=== PATIENT | female | born 1975 | race African-American/Black ===

== ENCOUNTER 2019-12-02 08:34 | Inpatient (IN) | payer MEDICAID, OTHER ==
[~2019-12-02] VITALS: Ht 160 cm; Wt 89.9 kg
[2019-12-02] MEDS ORDERED: ALBUTEROL SULF 2.5 MG/0.5ML(0.5%) NEB SOLN HHN STA (08:48)
[2019-12-02] MEDS ORDERED: IPRATROPIUM BROM 0.5 MG/2.5ML INH SOL NEB ONE (09:00)
[2019-12-02] MEDS ORDERED: ALBUTEROL SULF 2.5 MG/0.5ML(0.5%) NEB SOLN ONE ×2 (09:07→16:24)
[2019-12-02] MEDS ORDERED: methylPREDNISolone SOD SUCC 125 MG/2 ML VL ONE (09:08)
[2019-12-02] MEDS ORDERED: cefTRIAXone 1GM/50ML D5W 50 ML IV ONE ×2 (09:10→09:45)
[2019-12-02] MEDS ORDERED: methylPREDNISolone SOD SUCC 125 MG/2 ML VL IV ONE ×2 (09:15→16:30)
[2019-12-02] MEDS ORDERED: SODIUM CHLORIDE 0.9% 1,000 ML IV ONE ×2 (09:22→16:45)
[2019-12-02 09:59] LABS: Eosinophils # (auto) 0.4 10 ^3/uL (0-0.8); Hematocrit 41.6 % (36.0-46.0); Mean Corpuscular Hemoglobin 24.6 pg (28.0-32.0); Neutrophils # (auto) 4.3 10 ^3/uL (1.6-8.6); Neutrophils % (auto) 50.4 % (37.0-80.0); White Blood Cell 8.5 10^3/uL (4.4-10.8)
[2019-12-02 10:00] LABS: Basophils # (auto) 0.1 10 ^3/uL (0-0.2); Basophils % (auto) 0.6 % (0.0-2.0); Eosinophils % (auto) 4.8 % (0.0-7.0); Hemoglobin 12.8 g/dL (12.2-16.2); Lymphocytes % (auto) 34.8 % (10.0-50.0); Mean Corpuscular Hgb Conc. 30.8 g/dL (32.0-36.0); Monocytes # (auto) 0.8 10 ^3/uL (0-1.3); Monocytes % (auto) 9.4 % (0.0-12.0); Nucleated Red Blood Cells % 0.2 %; Platelet Count (auto) 161 10^3/uL (140-450); Red Cell Distribution Width 18.9 % (11.8-14.3)
[2019-12-02 10:04] LABS: Urine Bacteria FEW /hpf (None Seen); Urine Blood Negative /uL (Negative); Urine Specific Gravity 1.012 (1.001-1.035); Urine WBC <1 /hpf (0 - 5)
[2019-12-02 10:24] LABS: Albumin 3.1 g/dL (3.4-5.0); Anion Gap 5 (5-15); BUN/Creatinine Ratio 14.7; Blood Urea Nitrogen 10 mg/dL (7-18); Calcium 8.4 mg/dL (8.5-10.1); Carbon Dioxide 24 mmol/L (21-32); Chloride 111 mmol/L (98-107); GFR African American 121 mL/min; GFR Non-African American 100 mL/min; Glucose 120 mg/dL (74-106); Potassium 3.8 mmol/L (3.5-5.1); Sodium 140 mmol/L (136-145)
[2019-12-02 10:29] LABS: Alanine Aminotransferase 13 U/L (13-56); Alkaline Phosphatase 96 U/L (45-117); Aspartate Aminotransferase 23 U/L (15-37); Bilirubin, Total 0.3 mg/dL (0.2-1.0); Total Protein 7.2 g/dL (6.4-8.2)
[2019-12-02] MEDS ORDERED: MAGNESIUM SULFATE 1GM/100ML 100 ML IV ONE ×2 (10:30→16:45)
[2019-12-02] MEDS ORDERED: MORPHINE SULF INJ 2 MG/ML SYRINGE 1ML IV PRN ×2 (13:00)
[2019-12-02] MEDS ORDERED: ACETAMINOPHEN 500 MG TAB PO PRN (13:00)
[2019-12-02] MEDS ORDERED: NITROGLYCERIN 0.4 MG SL TAB SL PRN (13:00)
[2019-12-02] MEDS ORDERED: ONDANSETRON HCL 4 MG/2 ML VIAL IV PRN (13:00)
[2019-12-02] MEDS: SODIUM CHLORIDE 0.9% 1,000 ML IV SCH ×2 (13:08→20:55)
[2019-12-02] MEDS: IPRATROPIUM BROM 0.5 MG/2.5ML INH SOL NEB SCH ×3 (14:00→21:07)
[2019-12-02] MEDS: ALBUTEROL SULF 2.5 MG/0.5ML(0.5%) NEB SOLN NEB SCH ×2 (14:00→18:04)
[2019-12-02 14:35] VITALS: BP 136/78
[2019-12-02] MEDS ORDERED: ALBUTEROL SULF 2.5 MG/0.5ML(0.5%) NEB SOLN NEB ONE (15:30)
[2019-12-02] MEDS ORDERED: ALBUTEROL SULF 2.5 MG/0.5ML(0.5%) NEB SOLN NEB SCH (19:00)
[2019-12-02] MEDS ORDERED: IPRATROPIUM BROM 0.5 MG/2.5ML INH SOL NEB SCH (20:00)
[2019-12-02] MEDS: LEVALBUTEROL HCL 1.25 MG/3 ML NEB NEB SCH ×4 (20:23→23:23)
[2019-12-02] MEDS: methylPREDNISolone SOD SUCC 125 MG/2 ML VL IV SCH (21:41)
[2019-12-02] MEDS ORDERED: ACETYLCYSTEINE 20%(200MG/ML) SOL 4ML NEB SCH (22:00)
[2019-12-02] MEDS ORDERED: BUDESONIDE (INHALATION) 0.5 MG/2 ML NEB NEB SCH (22:00)
[2019-12-02] MEDS ORDERED: methylPREDNISolone SOD SUCC 125 MG/2 ML VL IV SCH (22:00)
[2019-12-02] MEDS ORDERED: PROMETHAZINE HCL 25 MG/ML 1ML IV ONE (22:45)
[2019-12-03] VITALS (29 sets, daily range): BP systolic 86–153; BP diastolic 43–88
[2019-12-03] MEDS: LEVALBUTEROL HCL 1.25 MG/3 ML NEB NEB SCH ×5 (01:16→04:08)
[2019-12-03] MEDS: IPRATROPIUM BROM 0.5 MG/2.5ML INH SOL NEB SCH ×4 (01:16→21:55)
[2019-12-03 04:23] LABS: Basophils # (auto) 0 10 ^3/uL (0-0.2); Eosinophils # (auto) 0 10 ^3/uL (0-0.8); Hemoglobin 11.1 g/dL (12.2-16.2); Lymphocytes # (auto) 0.6 10 ^3/uL (0.4-5.4); Lymphocytes % (auto) 9.5 % (10.0-50.0); Mean Corpuscular Hemoglobin 24.9 pg (28.0-32.0); Mean Corpuscular Hgb Conc. 31.7 g/dL (32.0-36.0); Mean Corpuscular Volume 78.8 fL (80.0-100.0); Monocytes # (auto) 0.1 10 ^3/uL (0-1.3); Monocytes % (auto) 1.5 % (0.0-12.0); Neutrophils # (auto) 5.4 10 ^3/uL (1.6-8.6); Platelet Count (auto) 141 10^3/uL (140-450); Red Blood Cells 4.45 10^6/uL (4.0-5.20); White Blood Cell 6.1 10^3/uL (4.4-10.8)
[2019-12-03 04:37] LABS: Potassium 3.1 mmol/L (3.5-5.1)
[2019-12-03] MEDS ORDERED: ALBUTEROL SULF HFA 90MCG INH 200DOSE IN SCH (06:00)
[2019-12-03] MEDS: SODIUM CHLORIDE 0.9% 1,000 ML IV SCH (06:05)
[2019-12-03] MEDS: methylPREDNISolone SOD SUCC 125 MG/2 ML VL IV SCH (08:06)
[2019-12-03] MEDS: cefTRIAXone 1GM/50ML D5W 50 ML IV SCH (08:06)
[2019-12-03] MEDS ORDERED: PANTOPRAZOLE 40 MG TAB PO SCH (10:00)
[2019-12-03] MEDS ORDERED: AZITHROMYCIN 500MG/ 250ML 250 ML IV SCH (10:00)
[2019-12-03] MEDS ORDERED: BUDESONIDE (INHALATION) 0.5 MG/2 ML NEB NEB ONE (12:30)
[2019-12-03] MEDS ORDERED: POTASSIUM CHL 20 Meq TABLET PO ONE (12:30)
[2019-12-03] MEDS ORDERED: IPRATROPIUM BROM 0.5 MG/2.5ML INH SOL NEB SCH ×2 (14:00)
[2019-12-03] MEDS ORDERED: ALBUTEROL SULF 2.5 MG/0.5ML(0.5%) NEB SOLN NEB SCH ×2 (14:00)
[2019-12-03] MEDS: BUDESONIDE (INHALATION) 0.5 MG/2 ML NEB NEB SCH ×2 (14:28→21:58)
[2019-12-03] MEDS: ALBUTEROL SULF 2.5 MG/0.5ML(0.5%) NEB SOLN NEB SCH ×2 (18:15→21:55)
[2019-12-03] MEDS: methylPREDNISolone SOD SUCC 40 MG/ML VL IV SCH (22:03)
[2019-12-04] MEDS: ALBUTEROL SULF 2.5 MG/0.5ML(0.5%) NEB SOLN NEB SCH ×6 (02:07→22:35)
[2019-12-04] MEDS: IPRATROPIUM BROM 0.5 MG/2.5ML INH SOL NEB SCH ×6 (02:07→22:35)
[2019-12-04 05:34] VITALS: BP 111/69
[2019-12-04 06:17] LABS: Basophils # (auto) 0 10 ^3/uL (0-0.2); Basophils % (auto) 0.1 % (0.0-2.0); Eosinophils # (auto) 0 10 ^3/uL (0-0.8); Hematocrit 35.5 % (36.0-46.0); Lymphocytes # (auto) 0.7 10 ^3/uL (0.4-5.4); Lymphocytes % (auto) 2.9 % (10.0-50.0); Mean Corpuscular Hemoglobin 24.9 pg (28.0-32.0); Mean Corpuscular Volume 80.2 fL (80.0-100.0); Monocytes # (auto) 0.7 10 ^3/uL (0-1.3); Neutrophils # (auto) 23.4 10 ^3/uL (1.6-8.6); Platelet Count (auto) 143 10^3/uL (140-450); Red Blood Cells 4.43 10^6/uL (4.0-5.20); Red Cell Distribution Width 19.4 % (11.8-14.3); White Blood Cell 24.9 10^3/uL (4.4-10.8)
[2019-12-04 06:38] LABS: BUN/Creatinine Ratio 17.1; Calcium 8.4 mg/dL (8.5-10.1); Magnesium 2.2 mg/dL (1.6-2.6); Potassium 4.3 mmol/L (3.5-5.1)
[2019-12-04 09:27] VITALS: BP 121/79
[2019-12-04] MEDS: AZITHROMYCIN 250 MG TAB PO SCH (09:44)
[2019-12-04] MEDS: cefTRIAXone 1GM/50ML D5W 50 ML IV SCH (09:46)
[2019-12-04] MEDS: methylPREDNISolone SOD SUCC 40 MG/ML VL IV SCH ×2 (09:55→21:18)
[2019-12-04 10:19] LABS: Alcohol, Urine < 3.0 mg/dL (0-5); Amphetamine Screen, Urine NEGATIVE (NEGATIVE); Barbiturate Scree,Urine NEGATIVE (NEGATIVE); Benzodiazephine Screen, Urine NEGATIVE (NEGATIVE); Cannabinoid Screen, Urine POSITIVE (NEGATIVE); Cocaine Screen, Urine NEGATIVE (NEGATIVE); Phencyclidine Screen, Urine NEGATIVE (NEGATIVE)
[2019-12-04] MEDS: BUDESONIDE (INHALATION) 0.5 MG/2 ML NEB NEB SCH ×2 (10:20→18:40)
[2019-12-04 10:28] LABS: Opiate Scree,Urine NEGATIVE (NEGATIVE)
[2019-12-04 12:51] VITALS: BP 138/79
[2019-12-04 16:23] VITALS: BP 126/61
[2019-12-04] MEDS: HYDROcodone-ACET 5/325MG TAB PO PRN (22:07)
[2019-12-04 22:29] VITALS: BP 108/52
[2019-12-05] MEDS: IPRATROPIUM BROM 0.5 MG/2.5ML INH SOL NEB SCH ×4 (02:19→14:20)
[2019-12-05] MEDS: ALBUTEROL SULF 2.5 MG/0.5ML(0.5%) NEB SOLN NEB SCH ×4 (02:19→14:20)
[2019-12-05 05:25] VITALS: BP 110/64
[2019-12-05] MEDS: BUDESONIDE (INHALATION) 0.5 MG/2 ML NEB NEB SCH (06:33)
[2019-12-05 08:31] VITALS: BP 117/67
[2019-12-05] MEDS: cefTRIAXone 1GM/50ML D5W 50 ML IV SCH (09:08)
[2019-12-05] MEDS: methylPREDNISolone SOD SUCC 40 MG/ML VL IV SCH (09:08)
[2019-12-05] MEDS: AZITHROMYCIN 250 MG TAB PO SCH (09:08)
[2019-12-05] MEDS: HYDROcodone-ACET 5/325MG TAB PO PRN (10:37)
[2019-12-05 10:43] VITALS: BP 117/67
[2019-12-05 13:00] VITALS: BP 108/61
[2019-12-05 15:41] VITALS: BP 108/61
== END 2019-12-05 16:30 | disposition home or self-care (01) | DRG 133 ==
LOC: ER 08:34 → UNDOADMIN 08:35 → ICU WEST 08:35 → TELE 08:35 → TELE-WESTW 12-03 18:05
PROVIDERS: ADMIT Nurse Practitioner Acute Care; ATTEND Internal Medicine
DX: J96.01 Acute respiratory failure with hypoxia (principal); J45.902 Unspecified asthma with status asthmaticus; E88.09 Other disorders of plasma-protein metabolism, not elsewhere classified; J44.1 Chronic obstructive pulmonary disease with (acute) exacerbation; J45.901 Unspecified asthma with (acute) exacerbation; E66.9 Obesity, unspecified; F17.210 Nicotine dependence, cigarettes, uncomplicated; F12.10 Cannabis abuse, uncomplicated; E87.6 Hypokalemia; Z68.35 Body mass index [BMI] 35.0-35.9, adult; Z71.6 Tobacco abuse counseling; Z03.818 Encounter for observation for suspected exposure to other biological agents ruled out
CPT/HCPCS: 36415; 71045; 80048; 80053; 80307; 81001; 83735; 84484; 84702; 85025; 87070; 87081; 87205; 94640; 94644; 94645; 96365; 99291; G0378; J0696; J2405

== ENCOUNTER 2022-06-30 10:30 | Emergency (ER) | payer MEDICAID, OTHER ==
[2022-06-30 12:05] VITALS: BP 136/102
[2022-06-30] MEDS ORDERED: PRED20TA2 PO (12:36)
[2022-06-30] MEDS ORDERED: ALBU108A5 IN (12:36)
[2022-06-30] MEDS ORDERED: AZIT500T66 PO (12:36)
== END 2022-06-30 12:43 | disposition home or self-care (01) ==
LOC: ER 10:30
DX: J45.909 Unspecified asthma, uncomplicated (principal); J20.9 Acute bronchitis, unspecified; F17.210 Nicotine dependence, cigarettes, uncomplicated
CPT/HCPCS: 71045

== ENCOUNTER 2022-07-04 08:34 | Emergency (ER) | payer OTHER ==
[~2022-07-04] VITALS: Ht 162.6 cm; Wt 84.0 kg
[~2022-07-04 08:34] MED LIST: ALBU108A5 IN; AZIT500T66 PO; PRED20TA2 PO
[2022-07-04 09:38] LABS: Basophils # (auto) 0 10 ^3/uL (0-0.2); Eosinophils # (auto) 0 10 ^3/uL (0-0.8); Eosinophils % (auto) 0.2 % (0.0-7.0); Mean Corpuscular Hemoglobin 27.1 pg (28.0-32.0); Monocytes # (auto) 0.7 10 ^3/uL (0-1.3); Neutrophils # (auto) 2.3 10 ^3/uL (1.6-8.6); White Blood Cell 5.3 10^3/uL (4.4-10.8)
[2022-07-04 09:40] LABS: Basophils % (auto) 0.7 % (0.0-2.0); Hematocrit 52.4 % (36.0-46.0); Lymphocytes # (auto) 2.3 10 ^3/uL (0.4-5.4); Lymphocytes % (auto) 42.2 % (10.0-50.0); Mean Corpuscular Hgb Conc. 32.4 g/dL (32.0-36.0); Mean Corpuscular Volume 83.5 fL (80.0-100.0); Monocytes % (auto) 13.1 % (0.0-12.0); Neutrophils % (auto) 43.8 % (37.0-80.0); Nucleated Red Blood Cells % 0.2 %; Red Blood Cells 6.28 10^6/uL (4.0-5.20); Red Cell Distribution Width 13.8 % (11.8-14.3)
[2022-07-04 09:48] LABS: Urine Blood Negative /uL (Negative)
[2022-07-04 09:58] LABS: Albumin 3.9 g/dL (3.4-5.0); Calcium 9.8 mg/dL (8.5-10.1); Potassium 3.6 mmol/L (3.5-5.1)
[2022-07-04 10:00] LABS: BUN/Creatinine Ratio 17.4
[2022-07-04 10:02] LABS: Bilirubin, Total 0.8 mg/dL (0.2-1.0)
[2022-07-04] MEDS ORDERED: ONDANSETRON ODT 4 MG TAB PO ONE (10:30)
[2022-07-04] MEDS ORDERED: LIDOCAINE VISCOUS 2% 15ML UD PO ONE (10:45)
[2022-07-04] MEDS ORDERED: ALUM & MAG HYDROX-SIMETH LIQ(MAALOX) 30 ML PO ONE (10:45)
[2022-07-04] MEDS ORDERED: FAMOTIDINE 20 MG TAB PO ONE (10:45)
[2022-07-04] MEDS ORDERED: LACTATED RINGER'S 1,000 ML IV ONE (12:00)
[2022-07-04] MEDS ORDERED: METOCLOPRAMIDE HCL 5MG/ml INJ 2ml VIAL IV ONE (12:00)
[2022-07-04] MEDS ORDERED: ONDA-144 PO (16:00)
[2022-07-04 16:17] VITALS: BP 127/83
== END 2022-07-04 16:18 | disposition home or self-care (01) ==
LOC: ER 08:34
DX: R11.2 Nausea with vomiting, unspecified (principal); R19.7 Diarrhea, unspecified; F17.210 Nicotine dependence, cigarettes, uncomplicated; J45.909 Unspecified asthma, uncomplicated; F12.10 Cannabis abuse, uncomplicated; Z32.02 Encounter for pregnancy test, result negative
CPT/HCPCS: 36415; 80053; 81003; 81025; 85025; 96361; 96374; 99284; J2765; Q0162